=== PATIENT | female | born 1940 | race American Indian/Alaskan Native ===

== ENCOUNTER 2020-06-19 08:53 | Day surgery (SDC) | payer MEDICARE ==
[~2020-06-19] VITALS: Ht 160 cm; Wt 68.8 kg
[2020-06-19] VITALS (14 sets, daily range): BP systolic 139–175; BP diastolic 65–128
[~2020-06-19 08:53] MED LIST: ALLO100T PO; ASPI-107 PO; ATOR40TA PO; BONE SUPPLEMENT; BUPIVAcaine/PF 2.5 mg/ml (0.25%) 30ml vial ONE; CARV3.122 PO; CHOL100025 PO; DOCUMENT DATE & TIME OF BETA-BLOCKER PO ONE; ESCI-10 PO; LISI20TA28 PO; SYN0.075T PO; UBID1CAP54 PO; VITA400T10 PO; [UNRECOGNIZED DRUG - CODE] PO; ceFOXitin 2GM-NS 100mL ADDvant 100 ML IV ONE; famotidine 20mg tablet PO ONE; ringers solution, lacted 1,000 ML IV SCH
--- NOTE | 2020-06-19 09:38 | NUR ---
UNABLE TO SCAN IC GREEN
[2020-06-19] MEDS ORDERED: INDOCYANINE GREEN 25 MG/10 ML VIAL IV ONE (10:00)
[2020-06-19 10:29] LABS: BASOPHILS % (AUTO) 0.7 % (0-1); EOSINOPHILS # (AUTO) 0.4 X10'3 (0-0.9); EOSINOPHILS % (AUTO) 7.1 % (0-6); LYMPHOCYTES # (AUTO) 1.1 X10'3 (1.1-4.8); LYMPHOCYTES % (AUTO) 19.8 % (21-51); MEAN CORPUSCULAR HEMOGLOBIN 31.2 PG (27.0-31.0); MEAN CORPUSCULAR HGB CONC 33.2 g/dL (33.0-36.5); MONOCYTES # (AUTO) 0.6 X10'3 (0-0.9); MONOCYTES % (AUTO) 11.4 % (2-12); NEUTROPHILS # (AUTO) 3.3 X10'3 (1.8-7.7); PRE OP HEMATOCRIT 37.1 % (35.0-45.0); PRE OP HEMOGLOBIN 12.3 g/dL (12.0-16.0); PRE OP PLATELET COUNT 206 X10'3 (140-440); RED BLOOD COUNT 3.95 X10'6 (4.20-5.60); RED CELL DISTRIBUTION WIDTH 14.1 % (11.5-14.5)
--- NOTE | 2020-06-19 10:30 | NUR ---
IC GREEN GIVEN
[2020-06-19 10:54] LABS: ALBUMIN 3.8 G/DL (3.4-5.0); ALKALINE PHOSPHATASE 80 IU/L (46-116); BLOOD UREA NITROGEN 30 MG/DL (7-18); BUN/CREATININE RATIO 19.9 (6.6-38.0); CALCIUM 9.4 MG/DL (8.5-10.1); CHLORIDE 106 MMOL/L (99-107); CREATININE 1.51 MG/DL (0.40-0.90); PRE OP ALT 29 U/L (30-65); PRE OP ANION GAP 11 (8-16); PRE OP AST 22 U/L (10-37); PRE OP BILIRUB, TOTAL 0.8 MG/DL (0.0-1.0); PRE OP GLUCOSE 100 MG/DL (70-104); PRE OP POTASSIUM 4.6 MMOL/L (3.4-5.1); PRE OP SODIUM 142 MMOL/L (135-145); TOTAL CARBON DIOXIDE 24.6 MMOL/L (24-32); TOTAL PROTEIN 7.5 G/DL (6.4-8.2); eGFR 33 ML/MIN
--- NOTE | 2020-06-19 10:55 | NUR ---
VERBAL COVID SCREEN NEG
[2020-06-19] MEDS ORDERED: neostigmine methylsulfate 1 MG/ML 10ml vial ONE (13:41)
[2020-06-19] MEDS ORDERED: sevoflurane 250ml liquid IH ONE (13:41)
[2020-06-19] MEDS ORDERED: glycopyrrolate 0.2mg/ml inj ONE (13:41)
[2020-06-19] MEDS ORDERED: fentaNYL/PF 50MCG/1 ML 2ML syringe ONE (13:43)
[2020-06-19] MEDS ORDERED: midazolam 1 mg/ML 2ml injection ONE (13:44)
[2020-06-19] MEDS ORDERED: LIDOcaine 2% 5ml jelly ONE (13:46)
[2020-06-19] MEDS ORDERED: dexamethasone sod phosphate 4mg/ml inj. ONE (13:58)
[2020-06-19] MEDS ORDERED: ondansetron/PF 4mg/2ml inj ONE (13:58)
[2020-06-19] MEDS ORDERED: LIDOcaine 2% (20mg/ml) 5ml vial ONE (13:58)
[2020-06-19] MEDS ORDERED: rocuronium 10mg/ml inj IV ONE (13:58)
[2020-06-19] MEDS ORDERED: propofol inj 20 ML IV ONE (13:58)
[2020-06-19] MEDS ORDERED: morphine 4 MG/ML inj SYRINge IV PRN (14:15)
[2020-06-19] MEDS ORDERED: labetalol 20mg/4ml (5mg/ml) syringe IV PRN (14:15)
[2020-06-19] MEDS ORDERED: morphine 2 MG/ML inj. syringe IV PRN (14:15)
[2020-06-19] MEDS ORDERED: ringers solution, lacted 1,000 ML IV SCH (14:15)
[2020-06-19] MEDS ORDERED: meperidine/PF 25mg/ml syringe IV PRN (14:15)
[2020-06-19] MEDS ORDERED: HYDROmorphone/PF 0.2 MG/ML SYRINGE IV PRN ×2 (14:15)
[2020-06-19] MEDS ORDERED: ondansetron/PF 4mg/2ml inj IV PRN (14:15)
[2020-06-19] MEDS ORDERED: hydrALAZINE 20mg/ml inj. IV PRN (14:15)
[2020-06-19] MEDS ORDERED: proCHLORperazine 10 MG/2 ml inj IV PRN (14:15)
[2020-06-19] MEDS ORDERED: acetaminophen 1,000mg/100ml IV 100 ML IV ONE (14:19)
--- NOTE | 2020-06-19 14:44 | NUR ---
Received from OR via [facility] , accompanied by Anesthesiologist RODRI and report given by Anesthesiolgist. IV PATENT IN R. HAND 20G. LR INFUSING AT 100 ML/HR. ABD. INCISIONS CDI, 3 INCISIONAL SITES NOTED. SCANT DRIED BLOOD ON R. INCISION. ALL SITES CLOSED WITH DERMABOND. MOVES ALL EXTREMITIES, POSITIVE CAP REFILL , PULSES AT ALL 4 EXTREMITIES. 10 L. O2 VIA MASK SAT AT 94%. PT. DENIES PAIN. Addendum: 06/19/20 at 1723 by Lucero Yanez RN Amended: Links added.
--- NOTE | 2020-06-19 16:44 | NUR ---
PT DISCHARGED TO FAMILY VIA ACCOMPANIED BY BONDERITE OPERATOR, PT ABLE TO AMBULATE AND TRANSFER TO CAR. PT. PT MET ALL D/C CRITERIA. ALL BELONGINGS SENT WITH PT., DENTURES RETAINED IN CUP IN BELONGINGS BAG. PT. STATE SISTER HAS HER WATCH. PT. DENIED NEED TO VOID. WAS ABLE TO CONSUME FLUIDS WITHOUT ISSUES. PAIN AT STATED ACCEPTABLE RATE OF 3. VSS. Addendum: 06/19/20 at 1732 by Lucero Yanez RN Amended: Links added.
== END 2020-06-19 16:44 | disposition home or self-care (01) ==
LOC: PAS 08:53
PROVIDERS: ATTEND Surgery
DX: K80.10 Calculus of gallbladder with chronic cholecystitis without obstruction (principal); I10 Essential (primary) hypertension; I25.10 Atherosclerotic heart disease of native coronary artery without angina pectoris; M10.9 Gout, unspecified; E11.9 Type 2 diabetes mellitus without complications; Z88.5 Allergy status to narcotic agent; Z88.0 Allergy status to penicillin; Z79.899 Other long term (current) drug therapy; Z79.82 Long term (current) use of aspirin; Z98.890 Other specified postprocedural states; Z95.5 Presence of coronary angioplasty implant and graft; Z86.73 Personal history of transient ischemic attack (TIA), and cerebral infarction without residual deficits; Z72.89 Other problems related to lifestyle; Z82.3 Family history of stroke
CPT/HCPCS: 36415; 47562; 80053; 85025; 93005; J0131; J0360; J0694; J1100; J1170; J2001; J2250; J2405; J2704; J2710; J3010; J3490; A4215; A4618; J7120